=== PATIENT | male | born 1995 | race Caucasian/White ===

== ENCOUNTER 2022-09-08 01:53 | Emergency (ER) | payer OTHER ==
[2022-09-08] MEDS ORDERED: Bupivacaine PF 0.5% 30 ML VIAL ONE (02:43)
== END 2022-09-08 02:59 | disposition home or self-care (01) ==
LOC: CSHERS 01:53
DX: K03.81 Cracked tooth (principal)
CPT/HCPCS: 99282; S0020

== ENCOUNTER 2023-03-03 12:50 | Emergency (ER) | payer OTHER ==
[2023-03-03] MEDS ORDERED: diphenhydrAMINE 50 MG/ML VIAL ONE (14:56)
[2023-03-03] MEDS ORDERED: Metoclopramide HCl 10 MG/2 ML VIAL ONE (14:56)
[2023-03-03] MEDS ORDERED: Ketorolac Tromethamine 30 MG/ML VIAL ONE (14:56)
[2023-03-03 15:17] LABS: #Basophils 0.1 10x3/uL (0.0-0.2); #Monocytes 0.9 10x3/uL (0.0-1.1); #Neutrophils 13.2 10x3/uL (1.5-8.4); %Basophils 0.3 % (0.0-2.0); %Eosinophils 0.1 % (0.0-6.0); %Lymphocytes 7.3 % (18.0-47.0); %Monocytes 5.9 % (0.0-10.0); Hematocrit 44.9 % (38.8-50.0); Hemoglobin 15.6 g/dL (13.5-17.5); Mean Corpuscular HGB CONC 34.7 g/dL (32.0-36.0); Mean Corpuscular Hemoglobin 28.8 pg (27.0-33.0); Mean Corpuscular Volume 82.8 fl (81.2-95.1); Mean Platelet Volume 10.3 fl (7.4-10.4); Platelet Count 217 10x3/uL (150-450); RBC Distribution Width 11.9 % (11.5-14.5); Red Blood Cell (RBC) Count 5.42 10x6/uL (4.32-5.72); White Blood Cell (WBC) Count 15.3 10x3/uL (3.5-10.5)
[2023-03-03 15:34] LABS: ALT (SGPT) 19 U/L (8-55); AST (SGOT) 18 U/L (5-34); Albumin 4.9 g/dL (3.5-5.0); Alkaline Phosphatase 41 U/L (40-110); Anion Gap 14 mmol/L (10-20); BUN (Urea Nitrogen) 7 mg/dL (8.9-20.6); Bilirubin, Total 0.7 mg/dL (0.2-1.2); Calc. Creatinine Clearance 0 mL/min (70-130); Calcium 9.8 mg/dL (7.8-10.44); Carbon Dioxide 25 mmol/L (22-29); Chloride 102 mmol/L (98-107); Estimated GFR 125; Globulin 3.3 g/dL (2.4-3.5); Glucose 88 mg/dL (70-105); Protein, Total 8.2 g/dL (6.0-8.3); Sodium 137 mmol/L (136-145)
== END 2023-03-03 16:46 | disposition home or self-care (01) ==
LOC: CSHERS 12:50
DX: M25.561 Pain in right knee (principal); G43.909 Migraine, unspecified, not intractable, without status migrainosus
CPT/HCPCS: 80053; 85025; 96374; 96375; J1200; J1885; J2765

== ENCOUNTER 2023-07-08 22:26 | Emergency (ER) | payer OTHER ==
[2023-07-08] MEDS ORDERED: Ketorolac Tromethamine 30 MG (1 mL) VIAL ONE (23:38)
== END 2023-07-09 | disposition home or self-care (01) ==
LOC: CSHERS 22:26
DX: K08.89 Other specified disorders of teeth and supporting structures (principal)
CPT/HCPCS: 96372; 99282; J1885

== ENCOUNTER 2023-11-22 13:02 | Emergency (ER) | payer OTHER ==
[~2023-11-22 13:02] MED LIST: Iopamidol 300 61% 100 ML VIAL FS ONE
[2023-11-22] MEDS ORDERED: Ondansetron PF 4 MG/2 ML Vial ONE ×2 (13:47→20:14)
[2023-11-22] MEDS ORDERED: Dicyclomine 20 MG/2 ML VIAL ONE (13:48)
[2023-11-22 13:55] LABS: #Basophils 0.06 10x3/uL (0.0-0.2); #Eosinphils 0.01 10x3/uL (0.0-0.5); %Basophils 0.6 % (0.0-2.0); %Eosinophils 0.1 % (0.0-6.0); %Lymphocytes 10.3 % (18.0-47.0); %Monocytes 5.2 % (0.0-10.0); %Neutrophils 83.5 % (40.0-75.0); Hemoglobin 14.4 g/dL (13.5-17.5); Mean Corpuscular Hemoglobin 29.5 pg (27.0-33.0); Mean Platelet Volume 10.7 fL (7.4-10.4); Platelet Count 209 10x3/uL (150-450); RBC Distribution Width 11.9 % (11.5-14.5); Red Blood Cell (RBC) Count 4.88 10x6/uL (4.32-5.72); White Blood Cell (WBC) Count 9.6 10x3/uL (3.5-10.5)
[2023-11-22 14:38] LABS: ALT (SGPT) 24 U/L (8-55); AST (SGOT) 17 U/L (5-34); Albumin 3.9 g/dL (3.5-5.0); Alkaline Phosphatase 44 U/L (40-110); Anion Gap 12 mmol/L (10-20); BUN (Urea Nitrogen) 9 mg/dL (8.9-20.6); Bilirubin, Total 0.4 mg/dL (0.2-1.2); Calc. Creatinine Clearance 0 mL/min (70-130); Calcium 9.4 mg/dL (7.8-10.44); Carbon Dioxide 24 mmol/L (22-29); Chloride 102 mmol/L (98-107); Estimated GFR 124; Globulin 3.1 g/dL (2.4-3.5); Glucose 154 mg/dL (70-105); Lipase 11 U/L (8-78); Potassium 3.8 mmol/L (3.5-5.1); Sodium 134 mmol/L (136-145)
[2023-11-22] MEDS ORDERED: Haloperidol Lactate 5 MG/ML VIAL ONE (15:01)
[2023-11-22 16:59] LABS: Bilirubin Neg (Negative); Blood, Urine Negative (Negative); Clarity Clear (Clear); Glucose, Urine (Dipstick) 100 mg/dL (Negative); Ketone, Urine 5 mg/dL (Negative); Leukocyte Negative (Negative); Nitrite Negative (Negative); Protein, Urine (Dipstick) Negative (Neg-Trace)
[2023-11-22] MEDS ORDERED: Benzocaine 20% Spray 60 ML CAN PO SCH (17:00)
[2023-11-22] MEDS ORDERED: Lidocaine Viscous Sol 2% 15 ml UD Cup ONE (17:01)
[2023-11-22] MEDS ORDERED: Oxymetazoline HCl 0.05% ( 15 ML ) ONE (17:01)
[2023-11-22 17:07] LABS: Lactic Acid 1.2 mmol/L (0.5-2.2)
[2023-11-22 18:01] LABS: RBC/HPF 0-3 HPF (0-3)
[2023-11-22 18:02] LABS: Bacteria/HPF Rare-Few HPF (None Seen); CAUTI Indications for Culture Pelvic or flank pain; Squamous Epithelial None Seen HPF (0-3); WBC/HPF 0-3 HPF (0-3)
[2023-11-22 18:03] LABS: Urine Culture Reflex No No
== END 2023-11-22 21:24 | disposition short-term general hospital (02) ==
LOC: CSHERS 13:02
DX: K31.1 Adult hypertrophic pyloric stenosis (principal); K80.20 Calculus of gallbladder without cholecystitis without obstruction
CPT/HCPCS: 71045; 74177; 76705; 80053; 81001; 83605; 83690; 85025; J1630; J2405; Q9967; 36415; 43753; 96372; 96374; 96375; 96376

== ENCOUNTER 2025-02-21 18:28 | Emergency (ER) | payer OTHER, MEDICARE | END 2025-02-21 20:02 | disposition left against medical advice (07) | LOC: CSHERS 18:28 | DX: Z53.21 Procedure and treatment not carried out due to patient leaving prior to being seen by health care provider (principal) ==